=== PATIENT | male | born 1990 | race Caucasian/White ===

== ENCOUNTER 2020-05-19 00:28 | Inpatient (IN) | payer SELFPAY ==
[2020-05-19] VITALS (93 sets, daily range): BP systolic 101–130; BP diastolic 44–90; PULSE 113–150; RESP 16–36; TEMP 37.2–40.1; O2SAT 72–98; BMI 34.7
--- NOTE | 2020-05-19 00:33 | XRR_ITS ---
PROCEDURE INFORMATION: Exam: XR Chest Exam date and time: 05/19/2020 12:35 AM Age: 30 years old Clinical indication: Device placement; Ett placement (vent status); Patient HX: Od, et check; Additional info: SOB TECHNIQUE: Imaging protocol: XR of the chest Views: 1 view. COMPARISON: No relevant prior studies available. FINDINGS: Tubes, catheters and devices: An endotracheal tube is present in satisfactory position. Lungs: Poor inspiration with elevated diaphragm. The lungs are clear.. No consolidation. Pleural spaces: Unremarkable. No pleural effusion. No pneumothorax. Heart/Mediastinum: Unremarkable. No cardiomegaly. Bones/joints: Unremarkable. XR/XR chest 1V portable [id number] IMPRESSION: 1. Satisfactory endotracheal tube position. 2. No acute cardiopulmonary abnormality.
--- NOTE | 2020-05-19 00:33 | ECG_ITS ---
[facility] Test Date: 2020-05-19 Pat Name: Jean-Paul Bills Department: Room: Gender: Male Gl Accountant: : 1990 Requested By: Libby Foss Order Number: [id number] Rosaline MD: Elijah Eastman M.D. Measurements Intervals [place] Rate: 145 P: 16 UT: 146 QRS: 4 QRSD: 88 T: 52 QT: 257 QTc: 399 Interpretive Statements SINUS TACHYCARDIA ST ELEVATION, PROBABLY EARLY REPOLARIZATION [ST ELEVATION WITH NORMALLY INFLECTED T WAVE] No previous ECG available for comparison Electronically Signed On 05-19-2020 17:03:19 CDT by Elijah Eastman M.D. [email or web address] leflore hospitalMIND C.T.I. Ltdthe jewish hospital.CLIPPATE/store/NU/[id number] f
--- NOTE | 2020-05-19 00:34 | W.ED.OVERDOS ---
HPI - Overdose General: Chief Complaint: Overdose Stated Complaint: OD Time Seen by Provider: 05/19/20 00:32 Source: EMS and police Mode of arrival: EMS Limitations: no limitations History of Present Illness: HPI Narrative: 30-year-old male who presents here after an overdose. Per EMS and police police was pulling him over and they believe that he had taken a large amount of methamphetamine. They state that they think he order bag of meth into his Gatorade and drink it really quick has not pulled him over. He did admit to using methamphetamine as well. EMS states that he started to become more agitated and altered in route. Patient is quite tachypneic in severe respiratory distress and very warm to the touch. Patient was given ketamine along with Versed in route. Patient's pulse ox is 72% currently on nasal cannula. His heart rate is in the 150s. He is not responsive at all at this time. Patient is sweating diffusely. Review of Systems General: Reports: ROS unobtainable due to medical condition and ROS unobtainable due to mental status Physical Exam Const: COMMON NORMALS: apparent distress and negative for patient oriented x3 GENERAL APPEARANCE: in distress and ill appearing OTHER: diaphoretic HENMT: COMMON NORMALS: normocephalic and atraumatic HEAD & SCALP: normocephalic and atraumatic Eye: COMMON NORMALS: Equal, round and reactive pupils present and EOMs intact bilaterally PUPIL: Yes Equal, round and reactive pupils present Neck/C-Spine: COMMON NORMALS: full ROM and supple Chest: COMMONS NORMALS: normal inspection of the chest and normal palpation of entire chest wall Resp: EFFORT & INSPECTION: Yes tachypneic and Yes labored AUSCULTATION: rales Cardio: COMMON NORMALS: regular rhythm and No murmurs present (Cardio) RATE: tachycardic RHYTHM: regular rhythm GI: COMMON NORMALS: Normal to inspection, nondistended, normoactive bowel sounds present, Soft to palpation, non-tender and no masses PALPATION: Yes Soft to palpation Extremity: COMMON NORMALS: normal to inspection and full ROM Neuro: COMMON NORMALS: moves all extremities and no focal motor deficits; negative for patient oriented x3 Psych: COMMON NORMALS: negative for mental status grossly normal, negative for Normal thought process present and negative for cooperative THOUGHT PROCESS: abnormal Skin: COMMON NORMALS: no rashes or lesions noted and no wounds NARRATIVE SKIN EXAM: diaphoretic GENERAL SKIN EXAM: no rashes or lesions noted Procedures Intubation Time out performed: Yes sedative: Etomidate Mg Given: 20 paralytic: Rocuronium Mg Given: 80 Laryngoscope: Desirae ET Tube Size: 8 ET Tube Uncuffed: No Tube Secured Depth (cm): 26 Tube Secured Location: lips Tube Placement Confirmation: visualized tube passing through cords, equal breath sounds bilaterally, no breath sounds over epigastrium and confirmation by capnometry Patient Tolerated Procedure: well Intubation Complications: none Course Vital Signs: Vital signs: Vital Signs Temperature 102.7 F H 05/19/20 01:30 Pulse Rate 131 H 05/19/20 02:00 Respiratory Rate 23 H 05/19/20 02:00 Blood Pressure 116/63 05/19/20 02:00 Pulse Oximetry 96 05/19/20 02:00 MDM - Overdose MDM Narrative: Medical decision making narrative: Jean-Paul presents here with methamphetamine overdose. I believe this is likely causing all his symptoms including his hyperthermia. Believe he did ingest a large amount of methamphetamine. Patient was given IV fluids and IV antibiotics in case he has an infectious cause. Patient was intubated here as he was having severe respiratory distress. I spoke to the hospitalist and I will admit to the ICU. Patient's vital signs are improving here. Lab Data: Labs: Lab Results 05/19/20 05/19/20 05/19/20 Range/Units 00:40 00:40 00:59 WBC 17.6 H (4.0-10.0) 10^3/ uL RBC 5.44 H (4.1-5.3) 10^6/u L Hgb 17.0 H (11.7-16.6) g/dL Hct 52.2 H (42.0-52.0) % MCV 96.0 H (80-94) fL MCH 31.3 (28.0-34.0) pg MCHC 32.6 (30.0-36.0) g/dL RDW 11.7 L (12.1-15.1) % Plt Count 341 (130-400) 10^3/c mm MPV 10.9 H (7.4-10.4) fL Neut % (Auto) 68.8 % Lymph % (Auto) 21.5 % Hitchcock % (Auto) 3.5 % Eos % (Auto) 1.3 % Baso % (Auto) 0.9 % Neut # (Auto) 12.10 H (1.8-7.7) 10^3/u L Lymph # (Auto) 3.8 (0.8-4.8) 10^3/u L Hitchcock # (Auto) 0.6 (0.2-0.9) 10^3/u L Eos # (Auto) 0.2 (0.0-0.8) 10^3/u L Baso # (Auto) 0.2 H (0.0-0.1) 10^3/u L Nucleated RBC % (a uto) 0 % Nucleated RBCs # 0.0 /100WBC Sodium 137 (136-145) mmol/L Potassium 5.1 (3.5-5.1) mmol/L Chloride 98 (98-107) mmol/L Carbon Dioxide 22 (22-29) mmol/L Anion Gap 22.1 H (5-19) BUN 20 (6-20) mg/dL Creatinine 1.7 H (0.7-1.2) mg/dL GFR Calculation 46.9 L (90-130) mL/min Glucose 425 H (65-115) mg/dL Calculated Osmolal ity 305 H (285-295) mOsm/k g Lactic Acid (0.5-2.2) mmol/L Calcium 9.6 (8.5-10.5) mg/dL Total Bilirubin 0.3 (0.15-1.2) mg/dL AST 29 (0-40) U/L ALT 21 (0-41) U/L Alkaline Phosphata se 92 (40-130) IU/L Troponin T Baselin e (0-15) ng/L NT-Pro-B Natriuret Pep (0-125) pg/mL Total Protein 7.3 (6.6-8.7) g/dL Albumin 4.3 (3.5-5.2) g/dL Globulin 3.0 (1.3-4.6) g/dL Salicylates < 0.3 L (3-10) mg/dL Urine Opiates Scre en Negative (Negative) ng/mL Acetaminophen < 5.0 L (10-30) ug/mL Ur Barbiturates Sc reen Negative (Negative) ng/mL Ur Phencyclidine S crn Negative (Negative) ng/mL Ur Amphetamines Sc reen Positive H (Negative) ng/mL U Benzodiazepines Scrn Negative (Negative) ng/mL Urine Cocaine Scre en Negative (Negative) ng/mL U Marijuana (THC) Screen Positive H (Negative) ng/mL 05/19/20 05/19/20 05/19/20 Range/Units 01:08 01:08 01:08 WBC (4.0-10.0) 10^3/ uL RBC (4.1-5.3) 10^6/u L Hgb (11.7-16.6) g/dL Hct (42.0-52.0) % MCV (80-94) fL MCH (28.0-34.0) pg MCHC (30.0-36.0) g/dL RDW (12.1-15.1) % Plt Count (130-400) 10^3/c mm MPV (7.4-10.4) fL Neut % (Auto) % Lymph % (Auto) % Hitchcock % (Auto) % Eos % (Auto) % Baso % (Auto) % Neut # (Auto) (1.8-7.7) 10^3/u L Lymph # (Auto) (0.8-4.8) 10^3/u L Hitchcock # (Auto) (0.2-0.9) 10^3/u L Eos # (Auto) (0.0-0.8) 10^3/u L Baso # (Auto) (0.0-0.1) 10^3/u L Nucleated RBC % (a uto) % Nucleated RBCs # /100WBC Sodium (136-145) mmol/L Potassium (3.5-5.1) mmol/L Chloride (98-107) mmol/L Carbon Dioxide (22-29) mmol/L Anion Gap (5-19) BUN (6-20) mg/dL Creatinine (0.7-1.2) mg/dL GFR Calculation (90-130) mL/min Glucose (65-115) mg/dL Calculated Osmolal ity (285-295) mOsm/k g Lactic Acid 5.3 H* (0.5-2.2) mmol/L Calcium (8.5-10.5) mg/dL Total Bilirubin (0.15-1.2) mg/dL AST (0-40) U/L ALT (0-41) U/L Alkaline Phosphata se (40-130) IU/L Troponin T Baselin e 201 H* (0-15) ng/L NT-Pro-B Natriuret Pep 52 (0-125) pg/mL Total Protein (6.6-8.7) g/dL Albumin (3.5-5.2) g/dL Globulin (1.3-4.6) g/dL Salicylates (3-10) mg/dL Urine Opiates Scre en (Negative) ng/mL Acetaminophen (10-30) ug/mL Ur Barbiturates Sc reen (Negative) ng/mL Ur Phencyclidine S crn (Negative) ng/mL Ur Amphetamines Sc reen (Negative) ng/mL U Benzodiazepines Scrn (Negative) ng/mL Urine Cocaine Scre en (Negative) ng/mL U Marijuana (THC) Screen (Negative) ng/mL Imaging Data^: CXR: Attestation: I personally reviewed and interpreted this imaging study as follows: My impression: no acute abnormality EKG Data^: EKG 1: Attestation: I personally reviewed and interpreted this EKG as follows: EKG interpretation date: 05/19/20 EKG interpretation time: 00:36 Interpretation: sinus tach hr [address] or t wave abnormalities qrs 88 qtc 340 Critical Care Time Critical Care Time: Critical Care Time: Yes Total Critical Care Time: 36 Attestation: This case had a high probability of a clinically significant, sudden, or life threatening deterioration of this patient's condition which required my full and direct attention, intervention and personal management. Discharge Plan Discharge Patient Disposition: Admitted As Inpatient Clinical Impression: Drug overdose Qualifiers: Encounter type: initial encounter Injury intent: undetermined intent Qualified Code(s): T50.904A - Poisoning by unspecified drugs, medicaments and biological substances, undetermined, initial encounter Respiratory failure Qualifiers: Chronicity: acute Respiratory failure complication: hypoxia Qualified Code(s): J96.01 - Acute respiratory failure with hypoxia Condition: Stable Coding Level of Care Code ED [employer] Business Manager for g Fwd Exam Comprehensive
[2020-05-19 00:46] LABS: Basophils # 0.2 10^3/uL (0.0-0.1); Basophils % 0.9 %; Eosinophils # 0.2 10^3/uL (0.0-0.8); Eosinophils % 1.3 %; Hematocrit 52.2 % (42.0-52.0); Lymphocytes # 3.8 10^3/uL (0.8-4.8); Lymphocytes % 21.5 %; Mean Corpuscular HGB Conc 32.6 g/dL (30.0-36.0); Mean Corpuscular Hemoglobin 31.3 pg (28.0-34.0); Mean Platelet Volume 10.9 fL (7.4-10.4); Monocytes # 0.6 10^3/uL (0.2-0.9); Monocytes % 3.5 %; Neutrophils % 68.8 %; Nucleated Red Blood Cells % 0 %; Platelet Count 341 10^3/cmm (130-400); Red Blood Count 5.44 10^6/uL (4.1-5.3); Red Cell Distribution Width 11.7 % (12.1-15.1); White Blood Count 17.6 10^3/uL (4.0-10.0)
[2020-05-19] MEDS: rocuronium 10 mg/mL INJ 5mL 80 MG IV (00:47)
[2020-05-19] MEDS: propofol 1,000 MG/100 ML INJ 4.1 MG IV (00:54)
--- NOTE | 2020-05-19 00:58 | PC.NURSE ---
EKG taken and given to provider
--- NOTE | 2020-05-19 01:02 | PC.NURSE ---
Patient blood pressure went to 89/52, physician verbal order to increase fentanyl drip to 100 mcg/hr and turn propofol to 2.5 mcg/min.
[2020-05-19] MEDS: sodium chloride 0.9% 1,000 ML 999 ML IV ×3 (01:07→02:26)
[2020-05-19 01:18] LABS: Amphetamines Screen Urine Positive (Negative); Barbiturates Screen Urine Negative (Negative); Benzodiazepines Screen Urine Negative (Negative); Cocaine Screen Urine Negative (Negative); Opiate Screen Urine Negative (Negative); PCP Screen Urine Negative (Negative); THC Screen Urine Positive (Negative)
[2020-05-19] MEDS: piperacillin-tazobactam 3.375 GM in sodium chloride 0.9% (plus) 50 ML IV ×3 (01:31→17:33)
[2020-05-19] MEDS: vancomycin 1,500 MG/300 ML PIGGYBACK 200 MG IV ×2 (01:39→14:21)
[2020-05-19 01:53] LABS: Alanine Aminotransferase 21 U/L (0-41); Albumin Level 4.3 g/dL (3.5-5.2); Alkaline Phosphatase 92 IU/L (40-130); Aspartate Amino Transferase 29 U/L (0-40); Blood Urea Nitrogen 20 mg/dL (6-20); Calcium 9.6 mg/dL (8.5-10.5); Carbon Dioxide 22 mmol/L (22-29); Chloride 98 mmol/L (98-107); Glomerular Filtration Rate 46.9 mL/min (90-130); Glucose 425 mg/dL (65-115); Osmolality Calculated 305 mOsm/kg (285-295); Sodium 137 mmol/L (136-145); Total Bilirubin 0.3 mg/dL (0.15-1.2); Total Protein 7.3 g/dL (6.6-8.7)
[2020-05-19 01:54] LABS: Acetaminophen < 5.0 ug/mL (10-30); Anion Gap 22.1 (5-19); Potassium 5.1 mmol/L (3.5-5.1); Salicylate < 0.3 mg/dL (3-10)
[2020-05-19 01:55] LABS: Lactic Sepsis W/Reflex 5.3 mmol/L (0.5-2.2)
[2020-05-19 01:56] LABS: Troponin(5th) Baseline 201 ng/L (0-15)
[2020-05-19 02:02] LABS: NT Pro B Type Natriuretic Pept 52 pg/mL (0-125)
--- NOTE | 2020-05-19 02:09 | P.HP_ITS ---
Providers/Chief Complaint Chief Complaint: OD History of Present Illness Jean-Paul Bills is a 30 year old male with no known past medical history other than type 2 diabetes presents today after drug overdose. As per the EMS report, Mr. Bills was pulled over by the traffic division commanding officer, and there was a concern that he ordered a bag of meth into his Gatorade which she drank quickly he also admitted to us ing methamphetamine. After a while he started becoming altered and agitated, EMS gave Versed and ketamine. On arrival in the ER he was tachycardic, febrile, diaphoretic, tachypneic, was in respiratory distress O2 saturation 70% on 6 L nasal cannula, extremely drowsy Dr. Haines intubated the patient and sedated with propofol and fentanyl. At the time of my evaluation heart rate 125, sinus tachycardia, he was given vancomycin and Zosyn in the ER, he had ice packs around his axilla, groin and legs, ABG revealed severe metabolic acidosis., He did receive 3 L of normal saline bolus, etomidate and rocuronium were used for induction Endotracheal tube size 8 scheduled at lip by 26 cm Chest x-ray shows no signs of consolidation edema or pleural effusion Mother was at the bedside when I evaluated the patient, she endorsed that he got out of senior care 6 months ago, smokes on a daily basis, she is not completely sure about any recreational drugs and was very emotionally labile. Review of Systems General: Reports: ROS unobtainable due to endotracheal tube Medications/Allergies Allergies Allergy/AdvReac Type Severity Reaction Status Date / Time Unable to Assess Allergy Unverified 05/19/20 00:29 PFSH Acute PFSH: Medical History (Updated 05/19/20 @ 03:03 by Prince Wall MD) Diabetes IGTN (ingrowing toe nail) Surgical History (Updated 05/19/20 @ 03:03 by Prince Wall MD) No pertinent past surgical history Family History (Updated 05/19/20 @ 03:05 by Prince Wall MD) Other No pertinent family history Social History (Updated 05/19/20 @ 03:08 by Prince Wall MD) Smoking and tobacco status: current every day smoker cigarettes [ Other cigarette details: A pack a day ] Alcohol intake: unknown Substance/Drug Use: current Substance/Drug use type: Marijuana and Methamphetamine Housing: [place] Vitals/I&O/Wt Last Vital Signs Temp 102.7 F H 05/19/20 01:30 Pulse 131 H 05/19/20 02:00 Resp 23 H 05/19/20 02:00 BP 116/63 05/19/20 02:00 Pulse Ox 96 05/19/20 02:00 05/18/20 05/18/20 05/19/20 14:59 22:59 06:59 Intake Total 1001.298 / 1001.298 Balance 1001.298 / 1001.298 Weight last 48 hrs Weight 136.078 kg Physical Exam Narrative: EXAM NARRATIVE: well-built, obese male who is intubated and sedated endotracheal tube size 8 Sedated with fentanyl and propofol Heart rate 125 sinus tachycardia Normal blood pressure Temperature 100.2 came down from 102 Ice packs around groin and legs Pupils symmetrical sluggish to response to light S1, S2 no murmur no signs of heart failure Multiple skin tattoos Did not appreciate needle track segura on his extremities Lower extremities no edema gangrene or ulcer Neuro exam is limited Bilateral assisted breath sounds Abdomen soft, nondistended Urinary Catheter Management^: Abdalla: Cath Placed During This Visit: yes Urinary Catheter Date of Insertion: 05/19/20 Urinary Catheter Time of Insertion: 00:57 Data : 05/19/20 00:40 05/19/20 00:40 Micro: Microbiology 05/19/20 01:05 Blood Culture - Preliminary Blood SPECIMEN COLLECTED 05/19/20 00:50 Blood Culture - Preliminary Blood SPECIMEN COLLECTED A&P Assessment and plan (1) Drug overdose: Status: Acute Qualifiers: Encounter type: initial encounter Injury intent: undetermined intent Qualified Code(s): T50.904A - Poisoning by unspecified drugs, medicaments and biological substances, undetermined, initial encounter (2) Respiratory failure: Status: Acute Qualifiers: Chronicity: acute Respiratory failure complication: hypoxia Qualified Code(s): J96.01 - Acute respiratory failure with hypoxia (3) Metabolic acidosis: Status: Acute (4) Sepsis: Status: Acute (5) Obesity (BMI 30.0-34.9): Status: Acute Additional A&P Information Acute respiratory failure requiring mechanical ventilation Intubated and sedated 05/[address] Adams Continue propofol and fentanyl for now would consider Versed if he shows more signs of agitation U tox positive for methamphetamine and marijuana patient ingested large amount o f methamphetamine as per EMS report, he is at risk of catabolic state, cardiotoxicity and tachyarrhythmia I would start him on tube feeds, continue fluids ABG reveals metabolic acidosis with hypoxemia Current vent settings FiO2 100% changed to 50%, PEEP of 8 changed to 5, tidal volume 450, CMV setting, minute ventilation 11, respiratory rate 16 Drug overdose: U tox positive for methamphetamine and marijuana As per his mother he got out of senior care 6 months ago, mother is not sure why he was pulled over by the traffic division commanding officer today High risk for cardiotoxicity, muscle injury, stroke, kidney failure, chronic anxiety psychosis and seizures Sepsis Criteria met with fever, tachycardia, tachypnea, leukocytosis, lactic acidemia Considering history of methamphetamine, rule out IV drug abuse related endocarditis, will obtain blood cultures and echo for now keep him on vancomycin and Zosyn along fluids he received 3 L in the ER I do believe his acute inflammatory response is due to methamphetamine toxicity Lactic acid 5 bicarb 22, Type 2 diabetes with severe metabolic acidosis due to lactic acidemia Check hemoglobin A1c level, ketone level Starting tube feeding To prevent DKA I will start him on insulin drip along tube feeding CHEN due to sepsis, obtain urinalysis Provide nephrotoxic agent antibiotics to be dosed renally If his creatinine is worsening with decreased urine output kindly reevaluate for nephro consult if he would benefit from hemodialysis for methamphetamine ingestion will check CPK level Full code Starting tube feed DVT prophylaxis we will start therapeutic dose of Lovenox considering high troponin, hypoxia tachypnea will request D-dimer to rule out PE, EKG showing sinus tachycardia without any signs of ST changes highly doubt ACS at this point he is at high risk of cardiotoxicity from methamphetamine ingestion Attestations Medical Necessity Statement*: Anticipating stay in the hospital cross more than 2 midnights currently requires ICU, critical condition due to methampheta mine ingestion risk of cardiotoxicity and renal failure Time Spent in Patient Care: (>than 50% of time spent in counselling and/or direct pt care on unit) . 40mins Coding Level of Care Code Acute Mine Foreman for Javang Herrera Diagnoses Drug overdose T50.904A Encounter type: initial encounter Injury intent: undetermined intent Respiratory failure J96.01 Chronicity: acute Respiratory failure complication: hypoxia Metabolic acidosis E87.2 Sepsis A41.9 Obesity (BMI 30.0-34.9) E66.9
[2020-05-19] MEDS: acetaminophen 650 mg Supp PR (02:24)
[2020-05-19 02:43] LABS: ABG PCO2 44.8 mmHg (35-45); ABG PH Result 7.28 (7.35-7.45); Arterial Blood Gas Hematocrit 48.2 % (42-52); Base Excess ABG -5.7 mmol/L (-2.0-2.0); Blood Gas Sample Site Brachial, right; Blood Gas Sample Type Arterial; HCO3 ABG 21.1 mmol/L (22-26); Oxygen Device VENT
--- NOTE | 2020-05-19 02:49 | ECG_ITS ---
[facility] ED Test Date: 2020-05-19 Pat Name: Jean-Paul Bills Department: Room: [facility]09 Gender: Male P D Driver: : 1990 Requested By: Libby Foss Order Number: [id number] Rosaline MD: Zuly Mann M.D. Measurements Intervals [place] Rate: 123 P: 33 NC: 173 QRS: 20 QRSD: 110 T: 34 QT: 314 QTc: 450 Interpretive Statements SINUS TACHYCARDIA NONSPECIFIC ST ELEVATION [0.05+ mV ST ELEVATION] Compared to ECG 05/19/2020 00:36:37 Early repolarization no longer present ST (T wave) deviation still present Electronically Signed On 05-21-2020 21:19:35 CDT by Zuly Mann M.D. [email or web address] county hospitalThe 19th Flooruniversity hospitals [email or web address]/OM/[id number]
[2020-05-19 02:58] LABS: Reflex Lactate Order REFLEX LACTIC ORDERD
--- NOTE | 2020-05-19 04:09 | PC.PHAR ---
Pharmacokinetic dosing service Date: 05/19/2020 Time: 399 Objective: Patient: Jean-Paul Bills Floor: ICU-9 Age: 30 yo Serum creatinine: 1.7 mg/dL Height: 78.0 Inches Weight (kg): 136.078 Diagnosis: Relevant medical/social history: Cultures and sensitivities: Other labs: Assessment: IBW (kg): 91.40 Dosing wt(kg): 109.3 Estimated Creatinine clearance (ml/min): 80.6 CRCL method: Cockcroft and Gault using ibw(default). Drug selected: Vancomycin Loading dose (mg): 0 Vd (liters): 98.4 (factor used: 0.9 L/kg) Pascual (hr-1): 0.071 Half life (hrs): 9.76 Recommended dose: 1500 mg Interval: 12 hrs Infusion time (hrs): 1.5 Predicted peak (mcg/mL): 25.2 Predicted trough (mcg/mL): 11.96 Adjusted body weight was selected for vancomycin dosing. To switch back, select the total body weight option above. Renal function is stable [ ] /unstable [ ] Recommendations: Give Vancomycin 1500 mg q 12 hrs with an expected Cpeak of 25.2 mcg/ml and an expected Ctrough of 11.96 mcg/ml Renal dosing of other antibiotics (review renal dosing of other medications and list guidelines here): Thank you for the consult, will continue to follow. Signature: Rocio Goodman [facility]
[2020-05-19 04:27] LABS: Ketone (Acetest) Serum Negative (Negative)
[2020-05-19] MEDS: sodium chloride 0.9% 1,000 ML 75 ML IV (04:30)
[2020-05-19 04:32] LABS: Troponin 5 2HR 179.8 ng/L (0-15); Troponin 5 2HR Delta -21.2 ABS# (0-10)
[2020-05-19 04:33] LABS: D Dimer 2.71 ug/mIFEU (0-0.59)
[2020-05-19] MEDS: insulin regular-human 250 UNIT in sodium chloride 0.9% 250 ML 9.6 UNIT IV (04:33)
--- NOTE | 2020-05-19 04:36 | PC.NURSE ---
Dr. Wall notified of critical 6hr troponin delta of -21.
[2020-05-19] MEDS: heparin 5,000 unit/mL INJ 1 mL 5000 UNIT SUBCUT ×3 (04:43→19:20)
[2020-05-19 04:46] LABS: Thyroid Stimulating Hormone 4.53 uIU/mL (0.27-4.20)
[2020-05-19 04:53] LABS: Creatine Phosphokinase 670 U/L (39-308)
[2020-05-19 05:39] LABS: ABG PCO2 38.5 mmHg (35-45); ABG PH Result 7.32 (7.35-7.45); Arterial Blood Gas Hematocrit 50.1 % (42-52); Base Excess ABG -5.8 mmol/L (-2.0-2.0); Blood Gas Allen Test Pos; Blood Gas Operator Identificat JB; Blood Gas Sample Site Radial, right; Blood Gas Sample Type Arterial; HCO3 ABG 19.8 mmol/L (22-26); Oxygen Device VENT; PO2 ABG 81.8 mmHg (80.0-100.0)
[2020-05-19 05:55] LABS: Add Urine Microscopic? NO; Charge for UA Resulting for Rev
[2020-05-19 06:03] LABS: Basophils # 0.1 10^3/uL (0.0-0.1); Basophils % 0.2 %; Eosinophils % 0.1 %; Hematocrit 48.3 % (42.0-52.0); Hemoglobin 16.1 g/dL (11.7-16.6); Lymphocytes % 3.9 %; Mean Corpuscular HGB Conc 33.3 g/dL (30.0-36.0); Mean Corpuscular Hemoglobin 31.7 pg (28.0-34.0); Mean Corpuscular Volume 95.1 fL (80-94); Mean Platelet Volume 10.5 fL (7.4-10.4); Monocytes # 1.3 10^3/uL (0.2-0.9); Monocytes % 4.9 %; Neutrophils # 23.94 10^3/uL (1.8-7.7); Neutrophils % 89.9 %; Nucleated Red Blood Cells % 0 %; Platelet Count 225 10^3/cmm (130-400); Red Blood Count 5.08 10^6/uL (4.1-5.3); Red Cell Distribution Width 11.9 % (12.1-15.1); White Blood Count 26.6 10^3/uL (4.0-10.0)
[2020-05-19 06:12] LABS: Bilirubin Urine Neg (Negative); Blood Urine Neg (Negative); Glucose Urine UA 4+ (Normal); Ketones Urine Negative (Negative); Leukocyte Esterase Urine Negative (Negative); Nitrate Urine Negative (Negative); Protein Urine Neg (Negative); Urine Appearance Clear (CLEAR); Urine Color Yellow (Yellow); Urobilinogen Urine Norm (Negative); pH Urine 5 (5-7)
[2020-05-19 06:34] LABS: Anion Gap 17.7 (5-19); Blood Urea Nitrogen 23 mg/dL (6-20); Calcium 8.3 mg/dL (8.5-10.5); Carbon Dioxide 20 mmol/L (22-29); Chloride 103 mmol/L (98-107); Glomerular Filtration Rate 50.3 mL/min (90-130); Glucose 328 mg/dL (65-115); Osmolality Calculated 300 mOsm/kg (285-295); Potassium 3.7 mmol/L (3.5-5.1); Sodium 137 mmol/L (136-145)
--- NOTE | 2020-05-19 06:49 | ECG_ITS ---
[facility] ED Test Date: 2020-05-19 Pat Name: Jean-Paul Bills Department: Room: [facility]09 Gender: Male Fashion Consultant Selling: : 1990 Requested By: Libby Foss Order Number: [id number] Rosaline MD: Zuly Mann M.D. Measurements Intervals [place] Rate: 121 P: 23 NE: 179 QRS: 11 QRSD: 113 T: 28 QT: 330 QTc: 469 Interpretive Statements SINUS TACHYCARDIA MODERATE INTRAVENTRICULAR CONDUCTION DELAY [110+ ms QRS DURATION] NONSPECIFIC T-WAVE ABNORMALITY ABNORMAL RHYTHM ECG Compared to ECG 05/19/2020 04:30:55 Intraventricular conduction delay now present T-wave abnormality now present ST (T wave) deviation no longer present Electronically Signed On 05-21-2020 21:18:59 CDT by Zuly Mann M.D. [id number]
[2020-05-19 07:13] LABS: Troponin 5 6HR 154.4 ng/L (0-15); Troponin 5 6HR Delta -46.6 ng/L (0-12)
[2020-05-19] MEDS: propofol 1,000 MG/100 ML INJ 16.3 MG IV ×2 (07:24→11:34)
--- NOTE | 2020-05-19 07:34 | CT_ITS ---
WS: [id number] CT HEAD TECHNIQUE: Noncontrast CT of the head obtained from the skullbase to the vertex. CLINICAL INFORMATION: unresponsive COMPARISON: None. DLP: 3167.[address] scans at [facility] use at least one of these dose optimization techniques: automat ed exposure control; mA and/or kV adjustment per patient size (includes targeted exams where dose is matched to clinical indication); or iterative reconstruction. FINDINGS: No evidence of intracranial hemorrhage or mass effect. Ventricular system and basal cisterns are mistry nt.No extra-axial fluid collections. No evidence of mass or mass effect. Normal mcdaniels-white differenti ation. Paranasal sinuses and mastoid air cells are well aerated. .Normal visualized soft tissues. CT/CT head wo con* [id number] IMPRESSION: 1. No evidence of intracranial hemorrhage or mass effect. 2. 3. No acute intracranial findings.
[2020-05-19 07:49] LABS: Alcohol Level < 10 mg/dL (0-10)
--- NOTE | 2020-05-19 07:52 | PM.PN ---
Subjective Subjective: Interval history: Mr. Bills is sedated on the ventilator. I briefly discussed his current plan, and diagnostic findings on laboratory and radiology with his mother. Medications: Reviewed: Yes Vitals/I&O/Wt Last Vital Signs Temp 99.9 F H 05/19/20 05:30 Pulse 122 H 05/19/20 07:30 Resp 21 H 05/19/20 07:41 BP 117/72 05/19/20 07:30 Pulse Ox 96 05/19/20 07:41 05/18/20 05/19/20 05/19/20 22:59 06:59 14:59 Intake Total 3417.052 / 3417.052 35.908 / 35.908 Output Total 600 / 600 Balance 2817.052 / 2817.052 35.908 / 35.908 Weight last 48 hrs Weight 136.078 kg Physical Exam Narrative: EXAM NARRATIVE: General exam is a white male, somewhat diaphoretic, sedated HEENT: Pupils round. Reactive. Oropharynx with endotracheal tube. Neck is supple no lymphadenopathy or thyromegaly Cardiovascular tachycardic, no murmur Lungs diminished breath sounds at the bases. No wheezing Abdomen is soft, positive bowel sounds. No obvious organomegaly demonstrates Abdalla Extremities no cyanosis clubbing or edema. Skin no obvious abscess site Neuro sedated Urinary Catheter Management^: Abdalla: Cath Placed During This Visit: yes Reason for Continuing Indwelling Catheter: Not indwelling catheter Urinary Catheter Date of Insertion: 05/19/20 Urinary Catheter Time of Insertion: 00:57 Data : 05/19/20 05:45 05/19/20 05:45 Micro: Microbiology 05/19/20 01:05 Blood Culture - Preliminary Blood SPECIMEN COLLECTED 05/19/20 00:50 Blood Culture - Preliminary Blood SPECIMEN COLLECTED A&P Assessment and plan (1) Drug overdose: Suspected amphetamine overdose. See history and physical. Certainly this toxidrome would match with his current examination and laboratory. Add Ativan as needed Initiate thiamine Status: Acute Qualifiers: Encounter type: initial encounter Injury intent: undetermined intent Qualified Code(s): T50.904A - Poisoning by unspecified drugs, medicaments and biological substances, undetermined, initial encounter (2) Metabolic acidosis: Likely secondary to above. Doubt DKA. Ketones negative. Anion gap is closing. Lactic acid elevated as well consistent with amphetamine overdose. Status: Acute (3) Respiratory failure: Likely secondary to amphetamine overdose however, as the patient had a fever and is hypoxic I feel compelled to check a Covid PCR Status: Acute Qualifiers: Chronicity: acute Respiratory failure complication: hypoxia Qualified Code(s): J96.01 - Acute respiratory failure with hypoxia (4) Fever: Likely secondary to amphetamine. Check Covid PCR. Await blood cultures. Antibiotics as noted under sepsis. Status: Acute (5) Encephalopathy acute: Likely secondary to amphetamine overdose. Check CT noncontrast head as per emergency department he was unresponsive on arrival Status: Acute (6) Acute kidney injury: Hydration Recheck renal function tomorrow Status: Acute (7) Rhabdomyolysis: Repeat CK tomorrow Likely secondary to amphetamine Status: Acute (8) Diabetes: Currently on an insulin drip. Continue to follow closely. Serum ketones were negative. Doubt DKA. Status: Acute (9) Elevated troponin: Likely secondary to amphetamine Check echocardiogram Status: Acute (10) Sepsis: Increase fluids Await blood cultures Vancomycin, Zosyn initiated. Status: Acute Additional A&P Information Full code Heparin for DVT prophylaxis Attestations Medical Necessity Statement*: Needs continued hospitalization secondary to ongoing amphetamine toxicity with respiratory failure and symptoms of sepsis. Critical Care Time: Critical Care Time (min): 46 Other Attestations: The high probability of a clinically significant, sudden or life threatening deterioration of the patient's [pulmonary, cardiac, electrolyte] system(s) required my full and direct attention, intervention and personal management. The critical care time is as shown. This time is in addition to time spent performing any reported procedures but includes the following: [x] Data and vital sign review and interpretation [x] Patient assessment, examination and intervention [x] Documentation [x] Medication orders and management Coding Level of Care Code Acute Montessori Program Director for g Fwd Diagnoses Drug overdose T50.904A Encounter type: initial encounter Injury intent: undetermined intent Metabolic acidosis E87.2 Respiratory failure J96.01 Chronicity: acute Respiratory failure complication: hypoxia Fever R50.9 Encephalopathy acute G93.40 Acute kidney injury N17.9 Rhabdomyolysis M62.82 Diabetes E11.9 Elevated troponin R77.8 Sepsis A41.9
--- NOTE | 2020-05-19 07:54 | PC.NURSE ---
Propofol titrated to 20mcg/kg/min at 0530. (MAR will not allow this to be charted.)
--- NOTE | 2020-05-19 08:00 | PC.NURSE ---
Patient receiving Fentanyl et propofol gtts for mechanical ventilation. Patient is tachycardic but all other non-verbal signs of pain are not present.
[2020-05-19 08:05] LABS: Estmated Average Glucose 240
[2020-05-19 09:10] LABS: Glucose Point of Care 153 mg/dL (70-110)
[2020-05-19 09:10] LABS: Glucose Point of Care 225 mg/dL (70-110)
[2020-05-19 09:10] LABS: Glucose Point of Care 380 mg/dL (70-110)
[2020-05-19 09:10] LABS: Glucose Point of Care 343 mg/dL (70-110)
[2020-05-19 17:08] LABS: Glucose Point of Care 152 mg/dL (70-110)
[2020-05-19 17:08] LABS: Glucose Point of Care 125 mg/dL (70-110)
[2020-05-19 17:08] LABS: Glucose Point of Care 153 mg/dL (70-110)
[2020-05-19 17:08] LABS: Glucose Point of Care 137 mg/dL (70-110)
[2020-05-19 17:08] LABS: Glucose Point of Care 154 mg/dL (70-110)
[2020-05-19 17:08] LABS: Glucose Point of Care 169 mg/dL (70-110)
[2020-05-19] MEDS: propofol 1,000 MG/100 ML INJ 12.2 MG IV (17:35)
[2020-05-19] MEDS: sodium chloride 0.9% 1,000 ML 120 ML IV (19:20)
--- NOTE | 2020-05-19 20:21 | PC.NURSE ---
Received bed side shift report from off going nurse. Pt's plan of care reviewed. Pt is currently sedated and intubated at this time. Respirations are even and unlabored. No s/sx of distress noted. Pt appears to be resting comfortably at this time. Bed in lowest and locked position, call light within reach, x's 4 rails up. Will continue to monitor pt.
[2020-05-19 20:35] LABS: Glucose Point of Care 137 mg/dL (70-110)
[2020-05-19 20:35] LABS: Glucose Point of Care 155 mg/dL (70-110)
[2020-05-19 20:35] LABS: Glucose Point of Care 136 mg/dL (70-110)
[2020-05-19 20:35] LABS: Glucose Point of Care 152 mg/dL (70-110)
[2020-05-19 20:38] LABS: Anion Gap 16.6 (5-19); Blood Urea Nitrogen 19 mg/dL (6-20); Calcium 8.2 mg/dL (8.5-10.5); Carbon Dioxide 22 mmol/L (22-29); Chloride 108 mmol/L (98-107); Glomerular Filtration Rate 86.6 mL/min (90-130); Glucose 129 mg/dL (65-115); Osmolality Calculated 300 mOsm/kg (285-295); Potassium 3.6 mmol/L (3.5-5.1); Sodium 143 mmol/L (136-145)
[2020-05-19] MEDS: propofol 1,000 MG/100 ML INJ 24.5 MG IV (21:14)
[2020-05-20] VITALS (59 sets, daily range): BP systolic 96–128; BP diastolic 57–82; PULSE 77–113; RESP 15–17; TEMP 36.8–38.3; O2SAT 90–97
[2020-05-20] MEDS: propofol 1,000 MG/100 ML INJ 24.5 MG IV ×3 (00:39→17:30)
[2020-05-20 01:14] LABS: Vancomycin Trough 8.6 ug/mL (10-15)
--- NOTE | 2020-05-20 01:30 | PC.NURSE ---
Insulin gtt has been turned off since 7pm per insulin gtt protocol. Repeat anion gap showed 16.6 with a CO2 of 22. Pt currently only has NS at 120mL/hr. Notified hospitalist to determine if D5 should be started to continue insulin gtt or continue to monitor blood sugar as is. No new orders given. Will continue to monitor hourly blood sugars and start insulin gtt as needed.
[2020-05-20] MEDS: vancomycin 1,500 MG/300 ML PIGGYBACK 200 MG IV (01:37)
[2020-05-20] MEDS: piperacillin-tazobactam 3.375 GM in sodium chloride 0.9% (plus) 50 ML IV ×3 (01:37→17:31)
[2020-05-20 02:55] LABS: ABG PCO2 46.1 mmHg (35-45); ABG PH Result 7.33 (7.35-7.45); Arterial Blood Gas Hematocrit 46.5 % (42-52); Base Excess ABG -2.3 mmol/L (-2.0-2.0); Blood Gas Allen Test Pos; Blood Gas Operator Identificat JB; Blood Gas Sample Site Radial, right; Blood Gas Sample Type Arterial; HCO3 ABG 24.1 mmol/L (22-26); Oxygen Device VENT
[2020-05-20 03:58] LABS: Basophils % 0.2 %; Eosinophils % 0.1 %; Hematocrit 44.8 % (42.0-52.0); Hemoglobin 14.5 g/dL (11.7-16.6); Lymphocytes # 3.1 10^3/uL (0.8-4.8); Lymphocytes % 19.5 %; Mean Corpuscular HGB Conc 32.4 g/dL (30.0-36.0); Mean Corpuscular Hemoglobin 31.5 pg (28.0-34.0); Mean Corpuscular Volume 97.2 fL (80-94); Mean Platelet Volume 11.1 fL (7.4-10.4); Monocytes # 0.5 10^3/uL (0.2-0.9); Neutrophils % 76.6 %; Nucleated Red Blood Cells % 0 %; Platelet Count 152 10^3/cmm (130-400); Red Blood Count 4.61 10^6/uL (4.1-5.3); Red Cell Distribution Width 12.1 % (12.1-15.1); White Blood Count 16.1 10^3/uL (4.0-10.0)
[2020-05-20] MEDS: heparin 5,000 unit/mL INJ 1 mL 5000 UNIT SUBCUT ×3 (04:05→20:18)
[2020-05-20 04:21] LABS: Albumin Level 3.1 g/dL (3.5-5.2); Alkaline Phosphatase 67 IU/L (40-130); Anion Gap 11.7 (5-19); Blood Urea Nitrogen 17 mg/dL (6-20); Calcium 8.3 mg/dL (8.5-10.5); Carbon Dioxide 23 mmol/L (22-29); Chloride 107 mmol/L (98-107); Creatinine Clr Calc Pharmacy 149.0062; Globulin 2.5 g/dL (1.3-4.6); Glomerular Filtration Rate 77.6 mL/min (90-130); Glucose 120 mg/dL (65-115); Osmolality Calculated 289 mOsm/kg (285-295); Potassium 3.7 mmol/L (3.5-5.1); Sodium 138 mmol/L (136-145); Total Bilirubin 0.7 mg/dL (0.15-1.2); Total Protein 5.6 g/dL (6.6-8.7)
[2020-05-20 04:33] LABS: Alanine Aminotransferase 784 U/L (0-41)
[2020-05-20 04:36] LABS: Aspartate Amino Transferase 1027 U/L (0-40)
[2020-05-20 04:37] LABS: Creatine Phosphokinase 3599 U/L (39-308)
--- NOTE | 2020-05-20 04:42 | PC.NURSE ---
Critical lab CK 3998. Notified hospitalist.
--- NOTE | 2020-05-20 05:00 | USCV_ITS ---
Jean-Paul Bills Age: 30 Gender: M : 1990 Exam Date: 05/20/2020 07:30 Ordering Phys: Prince Wall MD Technologist: Porsche Barnes [place] [facility] [place]: DRUG OVERDOSE BP: 111 / 67 HR: 101 Rhythm: Sinus Technical Quality: Fair MEASUREMENTS (Male / Female) Normal Values 2D ECHO LV Diastolic Diameter PLAX 4.5 cm 4.2 - 5.9 / 3.9 - 5.3 cm LV Systolic Diameter PLAX 3.6 cm IVS Diastolic Thickness 1.2 cm 0.6 - 1.0 / 0.6 - 0.9 cm IVS Systolic Thickness 1.3 cm LVPW Diastolic Thickness 2.0 cm 0.6 - 1.0 / 0.6 - 0.9 cm LVPW Systolic Thickness 2.1 cm LVOT Diameter 2.1 cm LV Ejection Fraction 2D Teich 38.7 % LV Ejection Fraction MOD 2C 58.3 % LV Ejection Fraction 2C AL 59.5 % LA Diameter 2.9 cm LA Width 3.6 cm LA Height 4.7 cm RA Width 3.1 cm RA Height 3.9 cm Aorta at Sinotubular Diameter 3.1 cm M-MODE LV Diastolic Diameter MM 5.7 cm 4.2 - 5.9 / 3.9 - 5.3 cm LV Systolic Diameter MM 3.2 cm LV Ejection Fraction MM Teich 75.2 % IVS Diastolic Thickness MM 1.1 cm 0.6 - 1.0 / 0.6 - 0.9 cm IVS Systolic Thickness MM 1.6 cm LVPW Diastolic Thickness MM 1.1 cm 0.6 - 1.0 / 0.6 - 0.9 cm LVPW Systolic Thickness MM 1.4 cm Aortic Annulus Diameter 3.6 cm LA Ao Ratio MM 1.0 MV E Point Septal Separation 1.4 cm DOPPLER AV Peak Velocity 111.0 cm/s LVOT Peak Velocity 92.0 cm/s AV Area Cont Eq vti 3.4 cm squared AV Area Cont Eq pk 2.8 cm squared MV Area PHT 13.8 cm squared Mitral E to A Ratio 0.9 MV E' Velocity 38.0 cm/s Mitral E to MV E' Ratio 5.2 Mitral E to LV E' Lateral Ratio 4.5 Mitral E to LV E' Septal Ratio 6.2 TR Peak Velocity 137.0 cm/s TR Peak Gradient 7.5 mmHg TV Peak E Velocity 70.0 cm/s Right Atrial Pressure 8.0 mmHg Pulmonary Artery Systolic Pressu 15.5 mmHg PV Peak Velocity 63.0 cm/s RV Acceleration Time 0.2 s RV Ejection Time 0.3 s RV AcT/ET 0.5 FINDINGS Left Ventricle Normal left ventricular size and systolic function. Left ventricular ejection fraction is estimated at 60 %. This study is inadequate for estimation of regional wall motion abnormality. Normal diastolic function. Right Ventricle Normal right ventricular size and systolic function. Right ventricular systolic pressure 15.5 mmHg. Right Atrium Normal right atrial size. Left Atrium Normal left atrial size. Mitral Valve Structurally normal mitral valve. No mitral valve stenosis. No mitral valve regurgitation. Aortic Valve Aortic valve not well visualized. No aortic valve stenosis. No aortic valve regurgitation. Tricuspid Valve Structurally normal tricuspid valve. No tricuspid valve stenosis. Trace to mild tricuspid valve regurgitation. Pulmonic Valve Pulmonic valve not well visualized. Pericardium No pericardial effusion. Aorta Normal sized aortic root. CONCLUSIONS 1. This is a technically difficult study. 2. Normal left ventricular size and systolic function. Left ventricular ejection fraction is estimated at 60 %. This study is inadequate for estimation of regional wall motion abnormality. Normal diastolic function. 3. Normal right ventricular size and systolic function. 4. No significant valvular abnormality. 5. Recommend repeat study with ultrasound enhancing agent. Zuly Mann MD (Electronically Signed) Final Date: 20 May 2020 22:21 S
[2020-05-20 06:36] LABS: Glucose Point of Care 115 mg/dL (70-110)
[2020-05-20 06:36] LABS: Glucose Point of Care 117 mg/dL (70-110)
[2020-05-20 06:36] LABS: Glucose Point of Care 112 mg/dL (70-110)
[2020-05-20 06:36] LABS: Glucose Point of Care 112 mg/dL (70-110)
[2020-05-20 06:36] LABS: Glucose Point of Care 114 mg/dL (70-110)
[2020-05-20 06:36] LABS: Glucose Point of Care 110 mg/dL (70-110)
[2020-05-20 06:36] LABS: Glucose Point of Care 143 mg/dL (70-110)
[2020-05-20 06:36] LABS: Glucose Point of Care 127 mg/dL (70-110)
[2020-05-20 06:36] LABS: Glucose Point of Care 116 mg/dL (70-110)
[2020-05-20 06:36] LABS: Glucose Point of Care 110 mg/dL (70-110)
[2020-05-20 06:36] LABS: Glucose Point of Care 119 mg/dL (70-110)
[2020-05-20 06:36] LABS: Glucose Point of Care 123 mg/dL (70-110)
--- NOTE | 2020-05-20 07:00 | PC.NURSE ---
Patient on Fentanyl et propofol gtts for ETT tolerance. Patient appears to be resting comfortably without any non-verbal signs of pain.
--- NOTE | 2020-05-20 07:00 | XR_ITS ---
WS: [id number] Portable AP semiupright chest, 05/20/2020 Clinical Data: resp failure Comparison: Portable chest, 05/19/2020 Findings: The patient has developed a left lower lobe opacity which may represent pneumonia. Right di aphragm is elevated. The endotracheal tube and nasogastric tube are in satisfactory position. Monitor leads are on the chest wall. The heart size is normal. XR/XR chest 1V portable [id number] Impression: 1. Development of left lower lobe opacity which may represent pneumonia. 2. Endotracheal tube and nasogastric tube are in satisfactory position.
[2020-05-20] MEDS: propofol 1,000 MG/100 ML INJ 36.7 MG IV ×2 (09:38→11:44)
[2020-05-20] MEDS: thiamine 100 mg Tablet PO (09:41)
[2020-05-20] MEDS: sodium chloride 0.9% 1,000 ML 150 ML IV ×3 (09:42→22:40)
[2020-05-20 10:17] LABS: Hepatitis A Antibody IgM Non-Reactive (Nonreactive); Hepatitis B Core IgM Non-Reactive (Nonreactive); Hepatitis B Surface Antigen Non-Reactive (Nonreactive); Hepatitis C Virus Antibody Non-Reactive (Nonreactive)
--- NOTE | 2020-05-20 10:28 | PC.CHAP ---
Pastoral Care Encounter/Spiritual Assessment Type of Contact [] Declined water engineer visit [] Patient/Family/Request visit [] Outpatient visit [] Follow-up visit [] Physician referral [] Code/Alert [x] Routine visit [] Staff referral [] Actively dying [] Patient sleeping [] Family support [] [] Out of room [] Palliative care [] [] Receiving care in room [] Pre-surgical visit [] Trauma [] Long length of stay [x] ICU visit [x] Other: ventilator Relational/Emotional Strength [] Patient feels connected with others/family/visitors/staff [] Distress [] Loneliness/isolation [] Abandonment Spirituality of Patient [] Person of Uzma [] Attends Muslim of their Uzma [] Believes in Prayer [] Reads Bible or Gnosticist materials [] There are Spiritual issues to be addressed Eyewear Manufacturing Tech Interventions [x] Prayer [] Active listening [] Non-anxious presence [] Spiritual/emotional support [] Crisis/trauma care [] Spiritual counseling [] Bereavement support [] Provided bereavement packet [] Provided Bible/devotional materials [] Provided toy/stuffed animal, coloring book to patient or family member [] Provided Communion [] Anointing/Guild [] Salvation [x] Completed spiritual assessment [] Other: Impact on Illness or Injury [] Angry [] Fearful [] Anxious [] Often cries [] Exhaustion [] Unable to work [] Unable to attend anabaptist [] Unable to walk/stand [] Unable to read [] Unable to drive [] Unable to eat/drink [] Unable to sleep [] Unable to be with family [] Patient intubated [] Other: Summary Time spent with patient
--- NOTE | 2020-05-20 10:52 | P.PN_ITS ---
Subjective Subjective: Interval history: Mr. Bills is sedated, on the ventilator. No events overnight. Temperature of 100.6 this morning. Medications: Reviewed: Yes Vitals/I&O/Wt Last Vital Signs Temp 100.6 F H 05/20/20 08:00 Pulse 100 05/20/20 10:00 Resp 16 05/20/20 10:19 BP 110/69 05/20/20 10:00 Pulse Ox 94 05/20/20 10:19 05/19/20 05/20/20 05/20/20 22:59 06:59 14:59 Intake Total 1610.723 / 7207.007 8088.508 / 3040.902 603.387 / 603.387 Output Total 950 / 2500 750 / 3250 750 / 750 Balance 660.723 / -600.606 391.508 / -209.098 -146.613 / -146.613 Weight last 48 hrs Weight 136.078 kg Physical Exam Narrative: EXAM NARRATIVE: General exam no apparent distress Cardiovascular regular rate and rhythm without murmur Lungs clear, diminished breath sounds are noted bilaterally Abdomen is soft with positive bowel sounds Extremities no cyanosis clubbing or edema Urinary Catheter Management^: Abdalla: Cath Placed During This Visit: yes Reason for Continuing Indwelling Catheter: Accurate Measurement of Urinary Output in Critically Ill Patients Urinary Catheter Date of Insertion: 05/19/20 Urinary Catheter Time of Insertion: 00:57 Data : 05/20/20 03:35 05/20/20 03:35 Micro: Microbiology 05/19/20 18:10 Gram Stain - Final Sputum - Endotracheal Tube Aspirate 05/19/20 01:05 Blood Culture - Preliminary Blood NEGATIVE TO DATE 05/19/20 00:50 Blood Culture - Preliminary Blood NEGATIVE TO DATE A&P Assessment and plan (1) Drug overdose: Suspected amphetamine overdose. See history and physical. Certainly this toxidrome would match with his current examination and laboratory. Ativan as needed Transition propofol and fentanyl to Precedex for weaning of ventilator Continue thiamine Status: Acute Qualifiers: Encounter type: initial encounter Injury intent: undetermined intent Qualified Code(s): T50.904A - Poisoning by unspecified drugs, medicaments and biological substances, undetermined, initial encounter (2) Metabolic acidosis: Resolved. Anion gap closed. Status: Acute (3) Respiratory failure: Likely secondary to amphetamine overdose however, as the patient had a fever and is hypoxic I feel compelled to check a Covid PCR. This is pending Chest x-ray today demonstrates a faint left lower lobe infiltrate. Cultures negative to date. Cannot rule out pneumonia. Currently on vancomycin and Zosyn. Status: Acute Qualifiers: Chronicity: acute Respiratory failure complication: hypoxia Qualified Code(s): J96.01 - Acute respiratory failure with hypoxia (4) Fever: Likely secondary to amphetamine. Covid PCR pending. Awaiting cultures. Currently on vancomycin and Zosyn. Status: Acute (5) Encephalopathy acute: Likely secondary to amphetamine overdose. CT head nothing acute When awakened he moves all extremities and has purposeful movement. Hopefully he will follow directions today and a weaning trial can occur so extubation can be considered. Status: Acute (6) Acute kidney injury: Continue hydration Renal function has returned to normal Status: Acute (7) Rhabdomyolysis: CK elevated further today Likely secondary to amphetamine Increase fluids Status: Acute (8) Diabetes: Discontinue insulin drip. Sliding scale insulin Status: Acute (9) Elevated troponin: Likely secondary to amphetamine Await echocardiogram Status: Acute (10) Sepsis: Continue fluids Await cultures Continue vancomycin and Zosyn Status: Acute Additional A&P Information Transaminitis. Likely secondary to amphetamine. Check hepatitis panel. Rechec k tomorrow. Discontinue Tylenol. Full code Heparin for DVT prophylaxis Attestations Medical Necessity Statement*: Needs continued hospital stay for IV antibiotics and respiratory failure requiring mechanical ventilation Critical Care Time: Critical Care Time (min): 32 Other Attestations: The high probability of a clinically significant, sudden or life threatening deterioration of the patient's [pulmonary, infectious, toxidrome] system(s) required my full and direct attention, intervention and personal management. The critical care time is as shown. This time is in addition to time spent performing any reported procedures but includes the following: [x] Data and vital sign review and interpretation [x] Patient assessment, examination and intervention [x] Documentation [x] Medication orders and management Coding Level of Care Code Acute Law Firm Administrator for Joyce Fwd Diagnoses Drug overdose T50.904A Encounter type: initial encounter Injury intent: undetermined intent Metabolic acidosis E87.2 Respiratory failure J96.01 Chronicity: acute Respiratory failure complication: hypoxia Fever R50.9 Encephalopathy acute G93.40 Acute kidney injury N17.9 Rhabdomyolysis M62.82 Diabetes E11.9 Elevated troponin R77.8 Sepsis A41.9
[2020-05-20] MEDS: dexmedetomidine 400 MCG in sodium chloride 0.9% (100 ml) 100 ML 10.6 MCG IV ×2 (13:30→20:20)
[2020-05-20 14:03] LABS: Coronavirus Test Green County Detected
[2020-05-20 17:19] LABS: Glucose Point of Care 104 mg/dL (70-110)
[2020-05-20 17:19] LABS: Glucose Point of Care 125 mg/dL (70-110)
[2020-05-20 20:23] LABS: Glucose Point of Care 171 mg/dL (70-110)
[2020-05-20 20:23] LABS: Glucose Point of Care 171 mg/dL (70-110)
[2020-05-20] MEDS: ibuprofen 600 mg Tablet PO (20:27)
--- NOTE | 2020-05-20 21:57 | PC.NURSE ---
[facility] 190 Report received from Charley Bullock RN. Patient is on VC-AC, FiO2 24%, Rate 16, TV 500, PEEP of 5, 8.0 tube, 26 cm at lip. Patients harrison catheter is in place and draining. Bilateral soft wrist restraints in place. Fentanyl is at 50 mcg/hour, precedex is running at 0.5 mcg/hour, propofol at 25 mcg/kg/min, NS at 150 mL/hour. Patient withdrawals from painful stimuli.
[2020-05-20] MEDS: propofol 1,000 MG/100 ML INJ 28.6 MG IV (22:15)
[2020-05-21] VITALS (41 sets, daily range): BP systolic 75–143; BP diastolic 49–106; PULSE 58–89; RESP 16–18; TEMP 36.6–37.1; O2SAT 91–100
[2020-05-21] MEDS: propofol 1,000 MG/100 ML INJ 24.5 MG IV ×2 (01:07→05:08)
--- NOTE | 2020-05-21 01:31 | PC.NURSE ---
[facility] 0100 hour Patients HR dropped down to upper 30s. Patient is not symptomatic and HR increased back up to low 60s. Precedex turned down to 0.2 mcg/kg/hour.
[2020-05-21] MEDS: dexmedetomidine 400 MCG in sodium chloride 0.9% (100 ml) 100 ML 7.1 MCG IV (02:24)
[2020-05-21] MEDS: piperacillin-tazobactam 3.375 GM in sodium chloride 0.9% (plus) 50 ML IV ×3 (02:24→18:35)
[2020-05-21] MEDS: heparin 5,000 unit/mL INJ 1 mL 5000 UNIT SUBCUT (04:56)
[2020-05-21 05:09] LABS: ABG PH Result 7.34 (7.35-7.45); Arterial Blood Gas Hematocrit 43.3 % (42-52); Base Excess ABG -3.6 mmol/L (-2.0-2.0); Blood Gas Sample Site Brachial, right; Blood Gas Sample Type Arterial; Oxygen Device VENT; PO2 ABG 67.7 mmHg (80.0-100.0)
[2020-05-21 05:32] LABS: Basophils # 0.1 10^3/uL (0.0-0.1); Basophils % 0.4 %; D Dimer 1.52 ug/mIFEU (0-0.59); Eosinophils # 0.1 10^3/uL (0.0-0.8); Eosinophils % 0.6 %; Hematocrit 40.3 % (42.0-52.0); Hemoglobin 13.9 g/dL (11.7-16.6); Lymphocytes # 2.6 10^3/uL (0.8-4.8); Lymphocytes % 23.4 %; Mean Corpuscular HGB Conc 34.5 g/dL (30.0-36.0); Mean Corpuscular Hemoglobin 32.9 pg (28.0-34.0); Mean Corpuscular Volume 95.5 fL (80-94); Monocytes # 0.4 10^3/uL (0.2-0.9); Monocytes % 3.9 %; Neutrophils # 8.01 10^3/uL (1.8-7.7); Neutrophils % 71.2 %; Nucleated Red Blood Cells % 0 %; Platelet Count 111 10^3/cmm (130-400); Red Blood Count 4.22 10^6/uL (4.1-5.3); Red Cell Distribution Width 11.7 % (12.1-15.1); White Blood Count 11.3 10^3/uL (4.0-10.0)
[2020-05-21 05:39] LABS: C Reactive Protein 75.2 mg/L (0.0-4.9)
[2020-05-21 05:54] LABS: Slide Review Slide Review Perform
--- NOTE | 2020-05-21 05:55 | PC.NURSE ---
[facility] Lab called about critical vancomycin trough. Patient received vancomycin this shift at 0130, and trough noted to be put in at 0509. Lab cancelled order and pharmacy notified. Pharmacy put in correct order time for next vancomycin trough.
--- NOTE | 2020-05-21 05:57 | PC.NURSE ---
SHIFT SUMMARY Patient has had fairly uneventful shift minus minor bradycardia episode. Ventilator settings have not changed this shift and have remained the same. Fentanyl is at 50 mcg/hour, propofol at 30 mcg/kg/min, precedex at 0.2 mcg/kg/hour, and NS at 150 mL/hour. 550 mL dark lori urine output with moderate amount of sediment. Patient has not followed commands this shift but when nurse asked him if he could open his eyes he appeared to be blinking in the direction of voice but did not open his eyes. Patient does withdrawal from pain and did appear anxious and restless a couple times throughout the night but was able to calm down with minimal titration of sedation medications. Motrin given once for fever of 101.0, temperature has come down and most recent is 98.5.
--- NOTE | 2020-05-21 06:34 | PC.NURSE ---
Addendum entered by Jluis Oneal RN 05/21/20 06:36: witnessed waste of 144 ml insulin Original Note: INSULIN WASTE 144 mL of insulin drip wasted with PASTOR Bazzi.
--- NOTE | 2020-05-21 07:00 | XR_ITS ---
WS: [id number] Portable AP upright chest, 05/21/2020 Clinical Data: follow up pneumonia Comparison: Portable chest, 05/20/2020 Findings: The left lower lobe opacity remains the same and probably represents developing pneumonia. There is atelectasis over the surface of the left diaphragm which is elevated. The heart is normal. T he endotracheal tube and nasogastric tube remain in good position. The heart is normal. Monitor leads are on the chest wall. XR/XR chest 1V portable [id number] Impression: 1. No change in left lower lobe opacity. 2. Satisfactory position of nasogastric tube and endotracheal tube.
[2020-05-21 07:54] LABS: Albumin Level 2.7 g/dL (3.5-5.2); Alkaline Phosphatase 66 IU/L (40-130); Aspartate Amino Transferase 412 U/L (0-40); Blood Urea Nitrogen 18 mg/dL (6-20); Calcium 7.9 mg/dL (8.5-10.5); Carbon Dioxide 18 mmol/L (22-29); Chloride 103 mmol/L (98-107); Globulin 2.9 g/dL (1.3-4.6); Glomerular Filtration Rate 130.7 mL/min (90-130); Glucose 196 mg/dL (65-115); Magnesium 1.9 mg/dL (1.7-2.3); Osmolality Calculated 281 mOsm/kg (285-295); Sodium 132 mmol/L (136-145); Total Bilirubin 0.9 mg/dL (0.15-1.2); Total Protein 5.6 g/dL (6.6-8.7)
[2020-05-21 08:01] LABS: Anion Gap 15.4 (5-19); Creatine Phosphokinase 887 U/L (39-308); Potassium 4.4 mmol/L (3.5-5.1)
[2020-05-21 08:06] LABS: Alanine Aminotransferase 1018 U/L (0-41)
--- NOTE | 2020-05-21 08:15 | PC.NURSE ---
Critical CK results taken and given to primary nurse, PASTOR Browne.
[2020-05-21] MEDS: thiamine 100 mg Tablet PO (08:20)
[2020-05-21] MEDS: sodium chloride 0.9% 1,000 ML 150 ML IV (08:21)
[2020-05-21 08:29] LABS: Ferritin 1499 ng/mL (30-400)
--- NOTE | 2020-05-21 08:49 | PC.NURSE ---
Patient is intubated and sedated this AM. Sedation was titrated down and patient was able to follow commands. Tube feeding was never started, Dr. Barahona aware and okayed.
--- NOTE | 2020-05-21 08:54 | P.PN_ITS ---
Subjective Subjective: Interval history: No events overnight. Sedated on the ventilator. Yesterday found to be Covid positive. Medications: Reviewed: Yes Vitals/I&O/Wt Last Vital Signs Temp 98.2 F 05/21/20 08:00 Pulse 89 05/21/20 08:00 Resp 16 05/21/20 08:31 BP 117/76 05/21/20 08:00 Pulse Ox 93 05/21/20 08:31 05/20/20 05/21/20 05/21/20 22:59 06:59 14:59 Intake Total 2537.433 / 3467.890 1792.368 / 5260.258 95.904 / 95.904 Output Total 850 / 1600 350 / 1950 Balance 1687.433 / 0886.665 3116.368 / 3310.258 95.904 / 95.904 Weight last 48 hrs Weight 132.086 kg Physical Exam Narrative: EXAM NARRATIVE: General exam no apparent distress Cardiovascular regular rate and rhythm without murmur Lungs clear, diminished breath sounds are noted bilaterally Abdomen is soft with positive bowel sounds Extremities no cyanosis clubbing or edema Urinary Catheter Management^: Abdalla: Cath Placed During This Visit: yes Reason for Continuing Indwelling Catheter: Accurate Measurement of Urinary Output in Critically Ill Patients Urinary Catheter Date of Insertion: 05/19/20 Urinary Catheter Time of Insertion: 00:57 Data : 05/21/20 05:09 05/21/20 07:26 Micro: Microbiology 05/19/20 18:10 Gram Stain - Final Sputum - Endotracheal Tube Aspirate A&P Assessment and plan (1) Drug overdose: Suspected amphetamine overdose. See history and physical. Certainly this toxidrome would match [facility] currently with the exception of Precedex and extubate today. Continue thiamine Status: Acute Qualifiers: Encounter type: initial encounter Injury intent: undetermined intent Qualified Code(s): T50.904A - Poisoning by unspecified drugs, medicaments and biological substances, undetermined, initial encounter (2) Metabolic acidosis: Resolved. Anion gap closed. Status: Acute (3) Respiratory failure: Likely secondary to amphetamine overdose however, as the patient had a fever and is hypoxic so Covid PCR was checked. This was positive. Secondary to quick weaning from the ventilator I do believe his respiratory failure was secondary to amphetamine and not Covid. Have not started remdesivir or dexamethasone at this point. Plan on extubation, and reassessment Chest x-ray today demonstrates a faint left lower lobe infiltrate. Cultures negative to date. Cannot rule out pneumonia. Currently on vancomycin and Zosyn. Status: Acute Qualifiers: Chronicity: acute Respiratory failure complication: hypoxia Qualified Code(s): J96.01 - Acute respiratory failure with hypoxia (4) Fever: Likely secondary to amphetamine. Covid PCR pending. Awaiting cultures. Currently on vancomycin and Zosyn. Status: Acute (5) Encephalopathy acute: Likely secondary to amphetamine overdose. CT head nothing acute No focal neurologic deficits noted Status: Acute (6) Acute kidney injury: Continue hydration Renal function has returned to normal Status: Acute (7) Rhabdomyolysis: CK now decreasing Likely secondary to amphetamine Hold fluids for extubation. Small dose of Lasix to facilitate pulmonary status Status: Acute (8) Diabetes: Sliding scale insulin Status: Acute (9) Elevated troponin: Likely secondary to amphetamine Echocardiogram normal, windows were poor Status: Acute (10) Sepsis: Resolved Reduce fluids Cultures negative to date Continue vancomycin and Zosyn currently MRSA PCR pending Status: Acute Additional A&P Information Transaminitis. Likely secondary to amphetamine. Hepatitis panel negative. AST now decreasing. ALT slightly higher. Bilirubin normal Full code Heparin for DVT prophylaxis Attestations Medical Necessity Statement*: Needs continued hospitalization secondary to pneumonia requiring IV antibiotics, respiratory failure requiring mechanical ventilation Critical Care Time: The high probability of a clinically significant, sudden or life threatening deterioration of the patient's [pulmonary, toxidrome, encephalopathy] system(s) required my full and direct attention, intervention and personal management. The critical care time is as shown. This time is in addition to time spent performing any reported procedures but includes the following: [x] Data and vital sign review and interpretation [x] Patient assessment, examination and intervention [x] Documentation [x] Medication orders and management Critical Care Time (min): 32 Coding Level of Care Code Acute Gin Pole Operator for Joyce Fwd Diagnoses Drug overdose T50.564A Encounter type: initial encounter Injury intent: undetermined intent Metabolic acidosis E87.2 Respiratory failure J96.01 Chronicity: acute Respiratory failure complication: hypoxia Fever R50.9 Encephalopathy acute G93.40 Acute kidney injury N17.9 Rhabdomyolysis M62.82 Diabetes E11.9 Elevated troponin R77.8 Sepsis A41.9
[2020-05-21] MEDS: FUROsemide 10 mg/mL SDV 2mL 20 MG IVP (08:59)
--- NOTE | 2020-05-21 09:10 | PC.NURSE ---
This nurse entered the room at 0900 to give medications and patient became very aggitated and was sitting up in bed while trying to self extubate. This nurse was attempting to hold patients hands down when other staff entered room. Dr. Barahona and respiratory therapist entered room. Sedation was shut off and patient was extubated per verbal orders at 0910. 2L nasal canula was applied. Patient was able to follow commands but was cursing at staff. Shortly after other staff left the room patient requested ice chips and to have catheter removed. Dr. Barahona gave this nurse verbal order to do so. Patient ambulated to bathroom and voided in toilet at 1000.
--- NOTE | 2020-05-21 10:05 | PC.NURSE ---
85 ml of fentanyl and 75 ml of precedex was wasted by this nurse and witnessed by Cassandra Harp
--- NOTE | 2020-05-21 10:44 | PC.CHAP ---
Pastoral Care Encounter/Spiritual Assessment Type of Contact [] Declined vascular surgeon visit [] Patient/Family/Request visit [] Outpatient visit [] Follow-up visit [] Physician referral [] Code/Alert [x] Routine visit [] Staff referral [] Actively dying [] Patient sleeping [] Family support [] [] Out of room [] Palliative care [] [x] Receiving care in room [] Pre-surgical visit [] Trauma [] Long length of stay [x] ICU visit [x] Other: removing ventilator ... letting patient breath on own.... Relational/Emotional Strength [] Patient feels connected with others/family/visitors/staff [] Distress [] Loneliness/isolation [] Abandonment Spirituality of Patient [] Person of [place] [] Attends Buddhism of their [place] [] Believes in Prayer [] Reads Bible or Jainism materials [] There are Spiritual issues to be addressed Switch Coupler Interventions [x] Prayer [] Active listening [] Non-anxious presence [] Spiritual/emotional support [] Crisis/trauma care [] Spiritual counseling [] Bereavement support [] Provided bereavement packet [] Provided Bible/devotional materials [] Provided toy/stuffed animal, coloring book to patient or family member [] Provided Communion [] Anointing/[place] [] Salvation [x] Completed spiritual assessment [] Other: Impact on Illness or Injury [] Angry [] Fearful [] Anxious [] Often cries [] Exhaustion [] Unable to work [] Unable to attend latter-day [] Unable to walk/stand [] Unable to read [] Unable to drive [] Unable to eat/drink [] Unable to sleep [] Unable to be with family [] Patient intubated [] Other: Summary Time spent with patient
--- NOTE | 2020-05-21 12:10 | PC.NURSE ---
Patient declined heparin and sliding scale insulin. Wants to know when he will be able to go home. Patient continues to have multiple episodes of emesis but refuses zofran. Education provided.
[2020-05-21 13:24] LABS: Vancomycin Trough 9.9 ug/mL (10-15)
[2020-05-21] MEDS: ondansetron 2 mg/ML SDV 2 mL 4 MG IVP ×2 (13:44→18:34)
[2020-05-21 16:54] LABS: Glucose Point of Care 175 mg/dL (70-110)
[2020-05-21 16:54] LABS: Glucose Point of Care 217 mg/dL (70-110)
--- NOTE | 2020-05-21 17:28 | PC.NURSE ---
Patient was transferred to [facility] at 1700 by this nurse via wheelchair. Patient had phone and housing and residence life director in hand.
[2020-05-21 17:32] LABS: Glucose Point of Care 174 mg/dL (70-110)
[2020-05-21 20:53] LABS: Glucose Point of Care 171 mg/dL (70-110)
[2020-05-22] VITALS (7 sets, daily range): BP systolic 128–147; BP diastolic 69–91; PULSE 77–99; RESP 18–19; TEMP 36.6–37.2; O2SAT 98–99
[2020-05-22] MEDS: piperacillin-tazobactam 3.375 GM in sodium chloride 0.9% (plus) 50 ML IV (04:45)
[2020-05-22 06:25] LABS: Basophils % 0.3 %; Eosinophils # 0.2 10^3/uL (0.0-0.8); Eosinophils % 1.5 %; Hematocrit 37.2 % (42.0-52.0); Lymphocytes % 19.2 %; Mean Corpuscular HGB Conc 34.9 g/dL (30.0-36.0); Mean Corpuscular Hemoglobin 31.9 pg (28.0-34.0); Mean Corpuscular Volume 91.2 fL (80-94); Mean Platelet Volume 11.3 fL (7.4-10.4); Monocytes # 0.6 10^3/uL (0.2-0.9); Monocytes % 5.6 %; Neutrophils # 7.43 10^3/uL (1.8-7.7); Nucleated Red Blood Cells % 0 %; Platelet Count 138 10^3/cmm (130-400); Red Blood Count 4.08 10^6/uL (4.1-5.3); Red Cell Distribution Width 11.3 % (12.1-15.1); White Blood Count 10.2 10^3/uL (4.0-10.0)
[2020-05-22 06:35] LABS: Glucose Point of Care 160 mg/dL (70-110)
[2020-05-22 06:47] LABS: Alanine Aminotransferase 603 U/L (0-41); Albumin Level 3.3 g/dL (3.5-5.2); Alkaline Phosphatase 73 IU/L (40-130); Aspartate Amino Transferase 168 U/L (0-40); Blood Urea Nitrogen 11 mg/dL (6-20); Carbon Dioxide 23 mmol/L (22-29); Chloride 100 mmol/L (98-107); Globulin 2.7 g/dL (1.3-4.6); Glomerular Filtration Rate 192.7 mL/min (90-130); Glucose 166 mg/dL (65-115); Osmolality Calculated 285 mOsm/kg (285-295); Sodium 136 mmol/L (136-145); Total Bilirubin 1.2 mg/dL (0.15-1.2)
[2020-05-22 06:52] LABS: Anion Gap 16.3 (5-19); Potassium 3.3 mmol/L (3.5-5.1)
[2020-05-22] MEDS: albuterol 8 gm MDI 1 PUFF INHALATION (08:42)
[2020-05-22] MEDS: potassium chloride ER 20 mEq Tablet 40 MEQ PO (08:59)
[2020-05-22] MEDS: thiamine 100 mg Tablet PO (08:59)
[2020-05-22] MEDS: levoFLOXacin 750 mg Tablet PO (08:59)
[2020-05-22 11:05] LABS: Glucose Point of Care 218 mg/dL (70-110)
--- NOTE | 2020-05-22 11:55 | PM.DCS ---
Discharge Providers Date of Admission: 05/19/20 01:50 Date of Discharge: May 22, 2020 Attending Provider at Admission: Prince Wall MD Attending Provider at Discharge: Jony Barahona MD Diagnoses at Discharge Discharge Diagnosis (1) Drug overdose: Status: Acute Qualifiers: Encounter type: initial encounter Injury intent: undetermined intent Qualified Code(s): T50.904A - Poisoning by unspecified drugs, medicaments and biological substances, undetermined, initial encounter (2) Metabolic acidosis: Status: Acute (3) Respiratory failure: Status: Acute Qualifiers: Chronicity: acute Respiratory failure complication: hypoxia Qualified Code(s): J96.01 - Acute respiratory failure with hypoxia (4) Fever: Status: Acute (5) Encephalopathy acute: Status: Acute (6) Acute kidney injury: Status: Acute (7) Rhabdomyolysis: Status: Acute (8) Diabetes: Status: Acute (9) Elevated troponin: Status: Acute (10) Sepsis: Status: Acute Reason for Visit Reason for Visit: OD Hospital Course Hospital Course Mr. Bills is a 30-year-old white male who presented to the hospital after concern of methamphetamine overdose. He was intubated in the emergency department for airway protection. He was noted to have fever, on presentation and there was concern of sepsis. He was placed on broad-spectrum antibiotics, and transition to the ICU on mechanical ventilation. He was given supportive care with IV fluids. Concordant problems of transaminitis, acute kidney injury, rhabdomyolysis were diagnosed. Secondary to fever and concern of pneumonia Covid PCR was run and this was positive. It came to light later that he was positive for Covid in December, tested negative in February, so there was concern that this could be a reinfection. However, it was thought his pneumonia in the hospital was likely bacterial. By May 21 that the patient had improved to a degree he was able to be extubated. Following extubation he had no recurrent fevers. He was on room air. It was thought he could be discharged home, with appropriate instructions for quarantine and follow-up. He will finish a course of Levaquin. Augmentin was not used secondary to patient's attestation of penicillin allergy. Echocardiogram was also checked in the hospital that was normal. Physical Exam Narrative: EXAM NARRATIVE: General exam no apparent distress Cardiovascular regular rate and rhythm without murmur Lungs clear Abdomen is soft with positive bowel sounds Extremities no cyanosis clubbing or edema. Urinary Catheter Management^: Abdalla: Cath Placed During This Visit: yes Reason for Continuing Indwelling Catheter: Accurate Measurement of Urinary Output in Critically Ill Patients Urinary Catheter Date of Insertion: 05/19/20 Urinary Catheter Time of Insertion: 00:57 Discharge Data Data Completed and Pending: Completed Studies During Hospitalization Category Date Time Status CT head wo con* 7 0450 Routine Cat Scan 05/19/20 07:34 Completed XR chest 1V branden ble [id number] Routine Exams 05/20/20 07:00 Completed XR chest 1V branden ble [id number] Routine Exams 05/21/20 07:00 Completed XR chest 1V branden ble [id number] Urgent Exams 05/19/20 00:33 Completed CV echo complete* [id number] Routine Ultrasound 05/20/20 05:00 Completed Pending at discharge Category Date Time Status Blood Culture Sta t Lab 05/19/20 01:05 Results Labs from last 24 hours 05/22/20 05/22/20 05/22/20 11:00 06:31 05:49 WBC RBC Hgb Hct MCV MCH MCHC RDW Plt Count MPV Neut % (Auto) Lymph % (Auto) [place] % (Auto) Eos % (Auto) Baso % (Auto) Neut # (Auto) Lymph # (Auto) [place] # (Auto) Eos # (Auto) Baso # (Auto) Nucleated RBC % (a uto) Nucleated RBCs # Sodium 136 Potassium 3.3 L Chloride 100 Carbon Dioxide 23 Anion Gap 16.3 BUN 11 Creatinine 0.5 L GFR Calculation 192.7 H Glucose 166 H POC Glucose 218 H 160 H Calculated Osmolal ity 285 Calcium 8.0 L Total Bilirubin 1.2 AST 168 H ALT 603 H Alkaline Phosphata se 73 Total Protein 6.0 L Albumin 3.3 L Globulin 2.7 Vancomycin Trough 05/22/20 05/21/20 05/21/20 05:49 20:44 17:27 WBC 10.2 H RBC 4.08 L Hgb 13.0 Hct 37.2 L MCV 91.2 MCH 31.9 MCHC 34.9 RDW 11.3 L Plt Count 138 MPV 11.3 H Neut % (Auto) 73.0 Lymph % (Auto) 19.2 [place] % (Auto) 5.6 Eos % (Auto) 1.5 Baso % (Auto) 0.3 Neut # (Auto) 7.43 Lymph # (Auto) 2.0 [place] # (Auto) 0.6 Eos # (Auto) 0.2 Baso # (Auto) 0.0 Nucleated RBC % (a uto) 0 Nucleated RBCs # 0.0 Sodium Potassium Chloride Carbon Dioxide Anion Gap BUN Creatinine GFR Calculation Glucose POC Glucose 171 H 174 H Calculated Osmolal ity Calcium Total Bilirubin AST ALT Alkaline Phosphata se Total Protein Albumin Globulin Vancomycin Trough 05/21/20 05/21/20 05/21/20 12:30 11:59 07:50 WBC RBC Hgb Hct MCV MCH MCHC RDW Plt Count MPV Neut % (Auto) Lymph % (Auto) [place] % (Auto) Eos % (Auto) Baso % (Auto) Neut # (Auto) Lymph # (Auto) [place] # (Auto) Eos # (Auto) Baso # (Auto) Nucleated RBC % (a uto) Nucleated RBCs # Sodium Potassium Chloride Carbon Dioxide Anion Gap BUN Creatinine GFR Calculation Glucose POC Glucose 217 H 175 H Calculated Osmolal ity Calcium Total Bilirubin AST ALT Alkaline Phosphata se Total Protein Albumin Globulin Vancomycin Trough 9.9 L Vitals: Last Vital Signs Temp 97.8 F 05/22/20 11:02 Pulse 77 05/22/20 11:02 Resp 19 H 05/22/20 11:02 BP 145/90 05/22/20 11:02 Pulse Ox 99 05/22/20 11:02 Discharge Plan Discharge Patient Disposition: Home Condition: Stable Prescriptions: New albuterol sulfate [Ventolin HFA] 90 mcg/actuation Hfa Aerosol Inhaler 1 puff inhalation Q4H.RESPIRATORY PRN (Reason: SHORT OF BREATH) Qty: 1 RF: 0 levofloxacin 750 mg Tablet 750 mg PO DAILY@0600 Qty: 6 RF: 0 Continued Humulin 70/30 U-100 Insulin 100 unit/mL (70-30) Suspension 45 unit SUBCUT BID RF: 0 Discharge Orders: Discharge Order (Routine); Ordered 05/22/20 Ordered By: Jony Barahona Discharge Diet: Diabetic Discharge Activity: Increase activity as tolerated Activity Restrictions/Additional Instructions: Return for any fever, worsening breathing or other concerns. As you had a positive Covid test, you should quarantine for a minimum of 10 days from May 19, as long as by that time your symptoms have improved significantly and fever is not present. Arrange for follow-up with a primary care provider in 3 to 5 days Discharge Attestations Time Spent in Discharge Care*: greater than 30 min Quality Metrics Clinical Quality Measures During this hospital stay, did patient experience: None Coding Level of Care Code Acute Chg FW DC note Diagnoses Drug overdose T50.904A Encounter type: initial encounter Injury intent: undetermined intent Metabolic acidosis E87.2 Respiratory failure J96.01 Chronicity: acute Respiratory failure complication: hypoxia Fever R50.9 Encephalopathy acute G93.40 Acute kidney injury N17.9 Rhabdomyolysis M62.82 Diabetes E11.9 Elevated troponin R77.8 Sepsis A41.9
--- NOTE | 2020-05-22 12:37 | PC.NURSE ---
Per [facility], case management, pt refuses to provide choice for PCP.
--- NOTE | 2020-05-22 16:51 | PC.RESP ---
Smoking Cessation information sent to patient.
== END 2020-05-22 12:55 | disposition home or self-care (01) | DRG 917 ==
LOC: ER 01:31 → ICU 02:12 → MEDSURG 05-21 17:09
PROVIDERS: Admitting Provider Internal Medicine; Emergency Provider Emergency Medicine; Visit Provider Internal Medicine
DX: T43.621A Poisoning by amphetamines, accidental (unintentional), initial encounter (principal); A41.9 Sepsis, unspecified organism; J96.01 Acute respiratory failure with hypoxia; G92 Toxic encephalopathy; U07.1 COVID-19; J15.9 Unspecified bacterial pneumonia; N17.9 Acute kidney failure, unspecified; E87.2 Acidosis; M62.82 Rhabdomyolysis; E11.9 Type 2 diabetes mellitus without complications; F15.90 Other stimulant use, unspecified, uncomplicated; F12.90 Cannabis use, unspecified, uncomplicated; F17.210 Nicotine dependence, cigarettes, uncomplicated; L60.0 Ingrowing nail; E66.9 Obesity, unspecified; Z68.33 Body mass index [BMI] 33.0-33.9, adult; Z88.0 Allergy status to penicillin; Z79.4 Long term (current) use of insulin
CPT/HCPCS: 31500; 36415; 36416; 36600; 51702; 70450; 71045; 80048; 80053; 80074; 80202; 80306; 80307; 81003; 82009; 82550; 82728; 82803; 82962; 83036; 83605; 83735; 83880; 84443; 84484; 85025; 85378; 86140; 87040; 87070; 87205; 87635; 87641; 93005; 93306; 94002; 94003; 94640; 94799; 96365; 96366; 96367; 96372; 96375; 99291; J1644; J1815; J1940; J2405; J2543; J2704; J3010; J3370; J3411; J3490; J3535; J7030; J7040; J7050